=== PATIENT | male | born 1950 | race Caucasian/White ===

== ENCOUNTER 2016-07-29 12:50 | Outpatient (CLI) ==
--- NOTE | 2016-07-30 09:33 | DI ---
EXAM: Two radiographic images of the chest. Comparison: None available. Reason for study: Cough and congestion. FINDINGS: A left sided Port-A-Cath overlies the anterior chest with the tip in the superior vena ca va. No pneumothorax, pleural effusion, or focal consolidation. The cardiac silhouette is within no rmal limits for size. There is mild degenerative disease of the visualized thoracic spine with ante rior osteophytosis. IMPRESSION: No acute cardiopulmonary findings.
== END 2016-07-29 12:51 | disposition home or self-care (01) ==
LOC: RAD 12:50
PROVIDERS: ATTEND Internal Medicine
DX: R05 Cough (principal); R09.89 Other specified symptoms and signs involving the circulatory and respiratory systems

== ENCOUNTER 2018-12-23 12:20 | Inpatient (IN) ==
[2018-12-23] MEDS ORDERED: NITROSTAT SL PRN (13:42)
[2018-12-23] MEDS ORDERED: VISTARIL INJ IM PRN (13:42)
[2018-12-23] MEDS ORDERED: ATROPINE SULFATE PFS IVP PRN (13:42)
[2018-12-23] MEDS ORDERED: TYLENOL PO PRN (13:42)
[2018-12-23 14:15] VITALS: BMI 27.2
[2018-12-23] MEDS ORDERED: PROTONIX IV IVP STA (14:33)
--- NOTE | 2018-12-23 15:29 | DI ---
EXAM: Two views of the chest. History: Short of breath Comparison: Chest radiograph 07/29/2016 Findings: Heart size is upper limits of normal. No focal consolidation. No appreciable pleural flu id and no pneumothorax. Left central line seen in place. No acute osseous abnormalities. Stable fo cus of subsegmental atelectasis within the right mid lung. Impression: No acute cardiopulmonary process
--- NOTE | 2018-12-23 16:26 | CT ---
EXAM: CT ABDOMEN AND PELVIS HISTORY: Gastrointestinal bleed TECHNIQUE: CT abdomen and pelvis with intravenous contrast. Images were reconstructed using 5 mm se ction thickness. Reformations were prepared. 75 ml Visipaque 320 FINDINGS: No comparison. Mild fatty infiltration of the liver. No focal hepatic or splenic lesions. Gallbladder wall appears mildly thickened. No distinct gallstones are identified. No pericholecystic stranding. Pancreas a nd adrenal glands are within normal limits. The kidneys have normal enhancement with no hydronephros is. There is mild to moderate atherosclerotic disease. Stomach is within limits. Normal appendix. There is mild distal colon diverticulosis. Thickening o f the proximal duodenum is suggested. No bowel obstruction. Urinary bladder is within normal limits . There is moderate enlargement of the prostate. There is no ascites. The mildly prominent bilateral fatty inguinal canals. The bones reveal degenerative disc and facet d isease at the lumbosacral junction. Lung bases are clear. There is no pneumoperitoneum. IMPRESSION: 1. Mild distal colon diverticulosis. There is thickening of the proximal duodenal wall possibly rel ated to enteritis. Nonobstructive bowel gas pattern. 2. Fatty liver. 3. Atherosclerotic disease. 4. Prostate enlargement.
[2018-12-23] MEDS: GLUCOPHAGE PO SCH (17:32)
[2018-12-23] MEDS: CARAFATE PO SCH ×2 (17:32→21:19)
[2018-12-23] MEDS ORDERED: METFORMIN HCL 1000 MG PO SCH (21:00)
[2018-12-23] MEDS: PROTONIX IV IVP SCH (21:19)
[2018-12-23] MEDS: FLOMAX PO SCH (21:19)
[2018-12-24] MEDS ORDERED: ASPIRIN EC PO SCH (08:00)
[2018-12-24] MEDS ORDERED: NON-FORMULARY MEDICATION (Losartan/Hydrochlorothiazide [Losartan-Hctz 100-25 Mg Tab] 1 TAB PO SCH (09:00)
[2018-12-24] MEDS: LIPITOR PO SCH (09:25)
[2018-12-24] MEDS: CARAFATE PO SCH ×4 (09:25→21:23)
[2018-12-24] MEDS: HYZAAR 50-12.5 MG TAB PO SCH (09:25)
[2018-12-24] MEDS: INSULIN GLARGINE HUM REC ANLOG 55 UNIT SQ SCH (09:57)
[2018-12-24] MEDS: PROTONIX IV IVP SCH ×2 (10:13→21:23)
--- NOTE | 2018-12-24 10:21 | DI ---
EXAM: Single contrast upper GI History: Valdez's esophagus. Comparison: CT abdomen pelvis 12/23/2018 Technique: Patient was given oral gastrographin and multiple spot films of the esophagus, stomach an d duodenum were obtained in various projections. Findings: The course and caliber of the esophagus are within normal limits. No mucosal lesions or f illing defects identified. The gastroesophageal junction is patent. No hiatal hernia. No gastroeso phageal reflux was observed during the course of this examination. No gastric polyps or ulcerations identified. No gastric outlet obstruction. The course and caliber of the duodenum are within normal limits. No wall thickening of the duodenum. No extravasation of contrast material. Impression: Unremarkable upper GI examination
--- NOTE | 2018-12-24 14:05 | HP ---
DATE OF SERVICE: 12/23/18 REASON FOR HOSPITALIZATION/ HISTORY OF PRESENT ILLNESS: The patient has had dizziness and light headed. Dark color black stools times two days, now stopped for 24 hours. 15 days go had epigastric pain with vomiting times several hours with fatigue and being tired. PAST MEDICAL HISTORY: Cancer tonsils Diabetes Mellitus type 2 Estefany. Anemia GERD History of Valdez's Esophagus Hypertension Dyslipidemia Osteoarthritis Sleep apnea (CPAP) PAST SURGICAL HISTORY: Light shoulder rotator cuff Right finger amputation REVIEW OF SYSTEMS: CONSTITUTIONAL: No fever, Fatigue. HEENT: No sinus drainage, no sore throat. RESPIRATORY: No cough, no congestion. CARDIOVASCULAR: No atypical chest pain for coronary artery disease. No angina , CHF symptoms, palpitations or shortness of breath. GASTROINTESTINAL: No melena or abdominal pain. No GERD. GENITOURINARY: No hematuria, no prostatism, no polyuria. CULINARY DIRECTOR: No blackout, no dizziness, no headache, no double vision. MUSCULOSKELETAL: No osteoarthritis pain, no joint swelling. ENDOCRINE: No weight loss, no weight gain. SKIN: Not dry, no rash. PSYCHIATRIC: Anxious, no depression, no suicidal thoughts, no homicidal thoughts. SOCIAL HISTORY: Marital Status: . Alcohol Usage: Occasional. Tobacco Usage: Yes. FAMILY HISTORY: Father diabetes mellitus type 2, heart Mother living Diabetes Mellitus type 2 MEDICATIONS: Omeprazole 40mg PO daily Aspirin 81mg Po daily Metformin 1000mg twice a day Losartan 100/25mg PO daily Lipitor 10mg PO daily Toujeo 50mg PO daily ALLERGIES: Codeine PHYSICAL EXAMINATION: V/S: Pulse 92, blood pressure 122/80, oxygen saturation 96%, Height 6'1, BMI 27.9 and weight 211.6. GENERAL APPEARANCE: Oriented times three. HEENT: Normal. NECK: No JVP, no bruits. RESPIRATORY: Lungs are clear. CARDIOVASCULAR: S1, S2, no S3, no murmurs. No cyanosis, clubbing. No ascites. GI/ABDOMEN: No tenderness. Bowel sounds are active. EXTREMITIES: edema, pulses +1, equal. CULINARY DIRECTOR: Deep tendon reflexes, sensory, motor and gait all normal. RECTAL: Refused EGD/colonoscopy/PROSTATE: - (2.1) . ASSESSMENT: 1. Peptic ulcer disease 2. GI bleed 3. Postural hypotension 4. Sinus tachycardia 5. BPH type symptoms 6. Cancer of tonsil and throat- Dr. Mckinney/Dr. Rivera 7. Estefany. anemia 8. Diabetes Mellitus type 2 10/05 A1c (7.6) 9. GERD 10.History of Valdez's esophagus 11.Hypertension 12.Dyslipidemia 13.Osteoarthritis 14.Sleep apnea, CPAP 15.COPD PLAN: 1. Admit, special care 2. Routine telemetry orders 3. Discontinue ASA 4. Protonix 40mg PO now and 12 hourly 5. Carafate 1gram PO four times a day 6. CT scan of abdomen and pelvis with contrast today 7. Upper GI with Barium swallow AM 8. Stool for occult blood times three 9. Continue all home medications. TIME SPENT: More than 70 minutes. MTDD
[2018-12-24] MEDS: FLOMAX PO SCH (21:23)
[2018-12-25] MEDS: CARAFATE PO SCH ×4 (06:22→21:04)
[2018-12-25] MEDS: LIPITOR PO SCH (08:37)
[2018-12-25] MEDS: HYZAAR 50-12.5 MG TAB PO SCH (08:37)
[2018-12-25] MEDS: PROTONIX IV IVP SCH ×2 (08:37→21:05)
[2018-12-25] MEDS: INSULIN GLARGINE HUM REC ANLOG 55 UNIT SQ SCH (08:37)
[2018-12-25] MEDS: HUMULIN R SUBCUT PRN (17:09)
[2018-12-25] MEDS: GLUCOPHAGE PO SCH (17:32)
[2018-12-25] MEDS: FLOMAX PO SCH (21:04)
[2018-12-26 05:39] VITALS: BP 111/67; TEMP 98.3
[2018-12-26] MEDS: CARAFATE PO SCH (06:11)
[2018-12-26] MEDS: HUMULIN R SUBCUT PRN (06:12)
[2018-12-26] MEDS: HYZAAR 50-12.5 MG TAB PO SCH (08:44)
[2018-12-26] MEDS: LIPITOR PO SCH (08:44)
[2018-12-26] MEDS: GLUCOPHAGE PO SCH (08:44)
[2018-12-26] MEDS: INSULIN GLARGINE HUM REC ANLOG 55 UNIT SQ SCH (08:45)
[2018-12-26] MEDS: PROTONIX IV IVP SCH (08:45)
--- NOTE | 2018-12-27 10:01 | PN ---
DATE OF SERVICE: 12/25/18 SUBJECTIVE: 68 year old white male hospitalized with GI bleeding. The patient's hgb dropped from 14 or 15 with hct of 45 down to 9.5. This morning it is 9.8 with hct 28. The patient has according to him liquid type of stools but they are brown in color. No black tarry stools noted anymore. The patient had positive stool for occult. The patient definitely had GI bleed in my opinion and seems to me that patient is very likely had colonic bleed from diverticulosis. Peptic ulcer disease can not be ruled out. The patient is on Protonix and Carafate. He is feeling hungry and his appetite has improved. is in the room. REVIEW OF SYSTEMS: CONSTITUTIONAL: No night sweats. No fatigue, malaise, lethargy. No fever or chills. HEENT: Eyes: No visual changes. No eye pain. No eye discharge. ENT: No runny nose. No epistaxis. No sinus pain. No sore throat. No odynophagia. No congestion. RESPIRATORY: No cough, no congestion. No hemoptysis. No shortness of breath. CARDIOVASCULAR: No angina symptoms. No CHF symptoms. No atypical chest pain for CAD. No palpitations. No PND. No orthopnea. GASTROINTESTINAL: No abdominal pain. No nausea or vomiting. No diarrhea or constipation. No hematemesis. No hematochezia. Brownish stool. GENITOURINARY: No urgency. No frequency. No dysuria. No hematuria. No obstructive symptoms. No discharge. No pain. No significant abnormal bleeding. MUSCULOSKELETAL: No musculoskeletal pain; no joint swelling. NEUROLOGICAL: No headache. No neck pain. No syncope. No seizures. No dizziness. PSYCHIATRIC: Not anxious. No depression. No suicidal thoughts. No homicidal thoughts. SKIN: No rash. No lesions. No wounds. ENDOCRINE: No unexplained weight loss. No weight gain. HEMATOLOGIC/LYMPHATIC: No anemia. No purpura. No petechiae. No prolonged or excessive bleeding. No palpable lymph nodes. PHYSICAL EXAMINATION: VITAL SIGNS: Temperature 97.9, pulse 55, respiratory rate 18, blood pressure 150/67 and pulse 97%. HEENT: Head normocephalic, atraumatic. Eyes: Extraocular muscles are intact. Pupils are equal, round and reactive to light and accommodation. Ears: No lesions. Nose appeared normal. Throat: No exudate or erythema. NECK: Supple. No JVD, no carotid bruit. No lymphadenopathy or thyromegaly. LUNGS: Decreased breath sounds but clear to auscultation. Percussion note normal. Chest symmetrical. HEART: S1, S2, no S3. No murmurs. No cyanosis or clubbing. No ascites. Pulses: Dorsalis pedis and posterior tibial pulses +1 to +2 bilaterally. ABDOMEN: Soft. Nontender. Bowel sounds active. No CVA tenderness. No mass felt. EXTREMITIES: No edema. Full range of motion of all extremities, equal. NEUROLOGIC: No focal deficit. Cranial nerves II through XII are grossly intact. No headache, no double vision or headache. SKIN: Not dry. Intact. Turgor - normal. LYMPHATIC: No palpable lymph nodes/no lymphedema. MUSCULOSKELETAL: Normal joints with no swelling. Muscle tone is normal. LABS: Hgb 9.8, hct 28, WBC 8,300 normal differential, creatinine 1.1, BUN 23. ASSESSMENT: 1. GI bleed seems to be under control. The patient is off aspirin PLAN: 1. Continue to observe the patient 2. If the patient is up and about and appetite still remained good and the patient's doesn't have any abdominal discomfort with normal stool we will let the patient go home tomorrow. 3. The patient is going to need EGD and colonoscopy. The patient has history of Valdez's Esophagus and he has avoided EGD and colonoscopy for past several years. He is agreeable to get it done. CONDITION: Stable. TIME SPENT: More than 30 minutes. Plan and coordination of the patient's care discussed in the presence of nurse. MICH
--- NOTE | 2018-12-27 10:12 | ECHO2D ---
Date of Exam: 12/26/18 Ordering Physician: DR. MIKAYLA IVEY Room #: SCU2 Reason for Echo: CHEST PAIN/ DM2 M-Mode Normal Adult Results LV Dimensions Normal Adult Results AoV Opening excursions >1.6 >1.6 LVEDD-base- 3.5-5.8 4.2 Ao root dimensions 2.0-3.7 3.8 LVESD-base- 3.1-4.6 L. Atrium dimensions 1.9-3.8 4.5 Post. Wall thickness 0.8-1.1 1.4 IV septum (thickness) 0.7-1.2 1.7 Post. Wall excursion 0.72-1.3 NORMAL Septal motion NORMAL Systolic motion R. Ventricular cavity 1.5-2.0 NORMAL LVEF 60% 68% Paradoxical septal wall motion NORMAL 2-D : 2-D M Mode Echocardiogram was performed using apical four chamber and left parasternal long and short axis views. Mitral, tricuspid and aortic valves appear to be normal. Contractility of the left ventricle seems to be normal, so is the cavity size. ENLARGED LEFT ATRIAL CAVITY. Aortic root appears to be normal. There is no pericardial effusion. There is no thrombus noted in the left ventricular or left aortic cavity. No mitral valve prolapse noted. M-MODE: MV: NORMAL AV: NORMAL TV: NORMAL PV: CHAMBER SIZE: ENLARGED LEFT ATRIAL CAVITY WALL MOTION: NORMAL PERICARDIUM: NORMAL INTERPRETATION: 1. LEFT VENTRICULAR HYPERTROPHY-MODERATE WITH ENLARGED LEFT ATRIAL CAVITY 2. NORMAL LEFT VENTRICULAR CONTRACTILITY 3. NORMAL VALVES MTDD
--- NOTE | 2018-12-28 09:46 | PN ---
DATE OF SERVICE: 12/26/18 SUBJECTIVE: 68 year old white male hospitalized with GI bleed. The patient likely had GI bleed secondary to fall and peptic ulcer disease and or diverticulosis of colon. The patient is a lot better for 48 hours. He did not have any black stools. He probably had a normal BM this morning. His appetite is wonderful. He is up and about. HGB and HCT is stable today it was 9.8 and hct 27. REVIEW OF SYSTEMS: CONSTITUTIONAL: No night sweats. No fatigue, malaise, lethargy. No fever or chills. HEENT: Eyes: No visual changes. No eye pain. No eye discharge. ENT: No runny nose. No epistaxis. No sinus pain. No sore throat. No odynophagia. No congestion. RESPIRATORY: No cough, no congestion. No hemoptysis. No shortness of breath. CARDIOVASCULAR: No angina symptoms. No CHF symptoms. No atypical chest pain for CAD. No palpitations. No PND. No orthopnea. GASTROINTESTINAL: No abdominal pain. No nausea or vomiting. No diarrhea or constipation. No hematemesis. No hematochezia. GENITOURINARY: No urgency. No frequency. No dysuria. No hematuria. No obstructive symptoms. No discharge. No pain. No significant abnormal bleeding. MUSCULOSKELETAL: No musculoskeletal pain; no joint swelling. NEUROLOGICAL: No headache. No neck pain. No syncope. No seizures. No dizziness. PSYCHIATRIC: Not anxious. No depression. No suicidal thoughts. No homicidal thoughts. SKIN: No rash. No lesions. No wounds. ENDOCRINE: No unexplained weight loss. No weight gain. HEMATOLOGIC/LYMPHATIC: No anemia. No purpura. No petechiae. No prolonged or excessive bleeding. No palpable lymph nodes. PHYSICAL EXAMINATION: VITAL SIGNS: Temperature 98.3, pulse 60, respiratory rate 15, blood pressure 110/70 and pulse ox 97% on room air. HEENT: Head normocephalic, atraumatic. Eyes: Extraocular muscles are intact. Pupils are equal, round and reactive to light and accommodation. Ears: No lesions. Nose appeared normal. Throat: No exudate or erythema. NECK: Supple. No JVD, no carotid bruit. No lymphadenopathy or thyromegaly. LUNGS: Clear to auscultation. Percussion note normal. Chest symmetrical. HEART: S1, S2, no S3. No murmurs. No cyanosis or clubbing. No ascites. Pulses: Dorsalis pedis and posterior tibial pulses +1 to +2 bilaterally. ABDOMEN: Soft. Nontender. Bowel sounds active. No CVA tenderness. No mass felt. EXTREMITIES: No edema. Full range of motion of all extremities, equal. NEUROLOGIC: No focal deficit. Cranial nerves II through XII are grossly intact. No headache, no double vision or headache. SKIN: Not dry. Intact. Turgor - normal. LYMPHATIC: No palpable lymph nodes/no lymphedema. MUSCULOSKELETAL: Normal joints with no swelling. Muscle tone is normal. ASSESSMENT: 1. GI bleed resolved 2. Diabetes Mellitus 3. C of the tonsil treated with chemotherapy and radiation 4. Hypertension 5. Dyslipidemia 6. BPH PLAN: 1. Discharge the patient home 2. Protonix and Carafate 3. Iron supplements 4. The patient is to see me on Thursday morning at 11:30am. 5. Anymore abdominal discomfort or GI bleed with black stools go to the emergency room. TIME SPENT: More than 30 minutes. Plan and coordination of the patient's care discussed in the presence of nurse. MICH
--- NOTE | 2018-12-28 09:58 | DS ---
DATE OF SERVICE: 12/26/18 FINAL DIAGNOSIS: 1. GI bleeding, etiology could be peptic ulcer or colonic diverticulosis 2. Diabetes Mellitus 3. History of Tonsil cancer treated with radiation and chemotherapy 4. Hypertension 5. Dyslipidemia 6. BPH DISCHARGE INSTRUCTIONS: The patient will be discharged home with instruction to come back on Thursday which is two days from now at 11:30 for a followup. The patient is advised to call Dr. Tubbs to get EGD and colonoscopy scheduled. The patient had those scheduled but he never kept his appointment. It has been dragged on for past several years. The patient has history of Valdez's esophagus. MEDICATIONS AT DISCHARGE: Atorvastatin Toujeo Losartan with Hydrochlorothiazide Metformin Flomax Omeprazole NEW PRESCRIPTIONS: Protonix 40mg daily Carafate 1gram four times a day Ferrous sulfate 325 twice a day DIET INSTRUCTIONS: As tolerated ACTIVITY: As tolerated SMOKING: N/A DISEASE SPECIFIC EDUCATION: GI bleed NSAIDS Followup New medications HOSPITAL COURSE: 68 year old white male hospitalized with GI bleed. His hgb dropped from 14 to 9.[address] for three days. The patient did not have any discomfort during the stay in the hospital. The patient's CT scan of the abdomen and pelvis was unremarkable except for enteritis. Upper GI with barium swallow gastrographin was negative. The patient had couple of weeks prior to hospitalization epigastric pain which was quite severe to the point where he had problems sleeping at night and lasted over night but after that he never had any problems with it except that for past couple of days prior to his admission he had this GI bleed with abdominal discomfort with black tarry stools. The patient was light headed and had evidence of pseudohypotension. The patient is up and about. Appetite is normal, no abdominal pain. His hgb and hct is stable, 9.8 and hct 27. His bowel movements are regular normal. The patient has been instructed to go to the nearest emergency room incase he starts passing black tarry stools or has abdominal discomfort with lightheadedness. CONDITION: stable. TIME SPENT: More than 60 minutes. MTDD
--- NOTE | 2018-12-28 09:59 | PN ---
12/23/18: Level 5 12/24/18: Intermediate 12/25/18: Intermediate 12/26/18: D as in discharge MTDD
--- NOTE | 2018-12-28 10:44 | PN ---
DATE OF SERVICE: 12/24/18 SUBJECTIVE: 68 year old male hospitalized with GI bleed. The patient's HGB now had dropped from 14 that was a couple of months ago to 9.5 today with hct of 27. The patient 's feeling better with no abdominal pain but has abdominal discomfort and epigastric area. The patient's CT scan of the abdomen was practically negative except for possibility of colitis. Upper GI with gastrographin reported normal done today. REVIEW OF SYSTEMS: CONSTITUTIONAL: No night sweats. No fatigue, malaise, lethargy. No fever or chills. HEENT: Eyes: No visual changes. No eye pain. No eye discharge. ENT: No runny nose. No epistaxis. No sinus pain. No sore throat. No odynophagia. No congestion. RESPIRATORY: No cough, no congestion. No hemoptysis. No shortness of breath. CARDIOVASCULAR: No angina symptoms. No CHF symptoms. No atypical chest pain for CAD. No palpitations. No PND. No orthopnea. GASTROINTESTINAL: No abdominal pain. No nausea or vomiting. No diarrhea or constipation. No hematemesis. No hematochezia. The patient is feeling hungry, the is in the room. GENITOURINARY: No urgency. No frequency. No dysuria. No hematuria. No obstructive symptoms. No discharge. No pain. No significant abnormal bleeding. MUSCULOSKELETAL: No musculoskeletal pain; no joint swelling. NEUROLOGICAL: No headache. No neck pain. No syncope. No seizures. No dizziness. PSYCHIATRIC: Not anxious. No depression. No suicidal thoughts. No homicidal thoughts. SKIN: No rash. No lesions. No wounds. ENDOCRINE: No unexplained weight loss. No weight gain. HEMATOLOGIC/LYMPHATIC: No anemia. No purpura. No petechiae. No prolonged or excessive bleeding. No palpable lymph nodes. PHYSICAL EXAMINATION: VITAL SIGNS: Temperature 97.7, pulse 60, respiratory rate 18, blood pressure 118/70 and pulse ox 96%. HEENT: Head normocephalic, atraumatic. Eyes: Extraocular muscles are intact. Pupils are equal, round and reactive to light and accommodation. Ears: No lesions. Nose appeared normal. Throat: No exudate or erythema. NECK: Supple. No JVD, no carotid bruit. No lymphadenopathy or thyromegaly. LUNGS: Decreased breath sounds but clear to auscultation. Percussion note normal. Chest symmetrical. HEART: S1, S2, no S3. No murmurs. No cyanosis or clubbing. No ascites. Pulses: Dorsalis pedis and posterior tibial pulses +1 to +2 bilaterally. ABDOMEN: Soft. Nontender. Bowel sounds active. No CVA tenderness. No mass felt. EXTREMITIES: No edema. Full range of motion of all extremities, equal. NEUROLOGIC: No focal deficit. Cranial nerves II through XII are grossly intact. No headache, no double vision or headache. SKIN: Not dry. Intact. Turgor - normal. LYMPHATIC: No palpable lymph nodes/no lymphedema. MUSCULOSKELETAL: Normal joints with no swelling. Muscle tone is normal. LABS: Hgb 9.5, hct 27, WBC 6,700 normal differential, creatinine 1.2, BUN 26, potassium 3.7. ASSESSMENT: 1. GI bleed likely from diverticulosis of the colon, can not rule out peptic ulcer disease. The patient is not on any nonsteroidal antiinflammatory. The patient is diabetic. PLAN: 1. Type of screen two units 2. H&H this afternoon 3. Continue Protonix and Carafate CONDITION: Stable. TIME SPENT: More than 30 minutes. Plan and coordination of the patient's care discussed in the presence of nurse. MICH
== END 2018-12-26 12:12 | disposition home or self-care (01) | DRG 379 ==
LOC: SCU 12:20
PROVIDERS: ADMIT Internal Medicine; ATTEND Internal Medicine
DX: K92.2 Gastrointestinal hemorrhage, unspecified (principal); K57.90 Diverticulosis of intestine, part unspecified, without perforation or abscess without bleeding; K21.9 Gastro-esophageal reflux disease without esophagitis; E11.9 Type 2 diabetes mellitus without complications; E78.5 Hyperlipidemia, unspecified; I10 Essential (primary) hypertension; I95.1 Orthostatic hypotension; M19.90 Unspecified osteoarthritis, unspecified site; G47.33 Obstructive sleep apnea (adult) (pediatric); N40.0 Benign prostatic hyperplasia without lower urinary tract symptoms; J44.9 Chronic obstructive pulmonary disease, unspecified; R10.13 Epigastric pain; R53.83 Other fatigue; R00.0 Tachycardia, unspecified
CPT/HCPCS: 36415; 80053; 81001; 82272; 82550; 82962; 84484; 85014; 85018; 85025; 86850; 86900; 93005; 93010

== ENCOUNTER 2019-01-11 08:48 | Day surgery (SDC) ==
[2019-01-11 09:08] VITALS: TEMP 97.6
[2019-01-11] MEDS ORDERED: LIDOCAINE HCL 2% LUER-JET ONE (10:20)
[2019-01-11] MEDS ORDERED: VERSED ONE (10:20)
[2019-01-11] MEDS ORDERED: DIPRIVAN 20 ML VIAL IVP ONE (10:20)
[2019-01-11 11:51] VITALS: BP 135/56
--- NOTE | 2019-01-12 09:28 | OP ---
INDICATIONS FOR PROCEDURE: 68-year-old gentleman presents for endoscopy and colonoscopy. He was recently hospitalized for acute lower GI bleed. He is asymptomatic now. He has a remote history of Valdez's disease. He last had endoscopy 15 years ago he tells me. He also has not had a colonoscopy in 15 years. He presents for screening colonoscopy and surveillance endoscopy. MEDICATIONS: SEE ANESTHESIA NOTES. PROCEDURE: 1. ENDOSCOPY, ESOPHAGEAL BIOPSIES. 2. COLONOSCOPY, SNARE POLYPECTOMY. REPORT: The risks, benefits, alternatives and limitations were discussed in detail with the patient. Informed consent was obtained. After adequate sedation was achieved, the video endoscope was introduced in the posterior pharynx and esophagus under direct vision and I easily advanced down to the second portion of the duodenum. I then slowly withdrew. The duodenal mucosa appeared unremarkable as did the duodenal bulb. The antrum and body were relatively unremarkable. The scope was retroflexed to look at the cardia and fundus which was unremarkable. The scope was anteflexed and withdrawn back through the esophagus. The gastric folds extended up to 38 cm. There was gastric tight mucosa extending from here to 33 cm. There were a few islands of squamous mucosa scattered throughout this area. This was consistent with a 5 cm segment of Valdez's. Video imaging capture capabilities were not available during this procedure so no pictures were taken. I did obtain four quadrant biopsies and targeted biopsies from 38 cm, 36 cm, 34 cm and 33 cm. Four separate jars were sent to pathology. The patient tolerated the procedure well with stable vital signs and pulse oximetry throughout. The patient's bed was turned. A digital rectal exam revealed good tone, no mass. The colonoscope was introduced into the rectum, was advanced under direct visual guidance to the cecum. The cecum was identified by the appendiceal orifice and IC valve. Again, video capture feature was not available throughout this exam so no pictures were taken. Once in the cecum I then slowly withdrew the scope in a circumferential manner examining the mucosa quite carefully. I looked on the proximal and distal side of folds and flexures as best as possible. I was able to retroflex the scope in the right colon and left colon to increase visualization. In the ascending colon and hepatic flexure area there were several small mouth diverticula noted. There was several scattered diverticula small mouth in the sigmoid colon. In the proximal transverse colon there were two 6 mm sessile polyps that I removed by snare technique. These were retrieved. In the mid transverse colon there was a small 3 to 4 mm polyp and a 6 mm polyp, both sessile, both removed by snare technique. The larger was retrieved. In the descending area there was a 6 mm sessile polyp that I removed by snare and it was retrieved. No other abnormalities noted including on retroflex view of the anal canal. The prep was good. The withdrawal time was 11 minutes and 26 seconds. The patient tolerated the procedure well with stable vital signs and pulse oximetry throughout. IMPRESSION: 1. 5 cm segmented Valdez's. 2. Five (5) colonic polyps successfully removed. 3. Scattered diverticulosis throughout the colon. 4. 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 5. I suspect his acute lower GI bleed was due to a diverticular bleed. RECOMMENDATIONS: 1. High fiber diet. 2. Reflux precautions. 3. Await esophageal biopsy results. If there is no evidence of dysplasia or atypia, recommend surveillance endoscopy examination again in 3 years. 4. Await colon polyp pathology. If everything is benign, then I would suggest a surveillance colonoscopy examination again in 3 years, sooner if signs or symptoms would indicate otherwise. 5. Will see him back in the office as needed. CC: DR. UCHE EPPS
== END 2019-01-11 11:50 | disposition home or self-care (01) ==
LOC: SURG 08:48
PROVIDERS: ATTEND Internal Medicine Gastroenterology
DX: K92.1 Melena (principal); K22.70 Barrett's esophagus without dysplasia; Z12.11 Encounter for screening for malignant neoplasm of colon; K31.7 Polyp of stomach and duodenum; D12.4 Benign neoplasm of descending colon; D12.3 Benign neoplasm of transverse colon
CPT/HCPCS: 82962

== ENCOUNTER 2019-01-12 05:04 | Emergency (ER) ==
[2019-01-12 05:11] VITALS: TEMP 96.8
[2019-01-12 05:20] VITALS: BP 185/94; BMI 29.0
[2019-01-12] MEDS ORDERED: MORPHINE 2 MG/ML SYRINGE IVP STA (05:29)
[2019-01-12] MEDS ORDERED: ZOFRAN 4 MG/2 ML IVP STA (05:30)
[2019-01-12] MEDS ORDERED: DILAUDID 0.5 MG/0.5 ML SYRINGE IVP STA ×2 (05:48→06:53)
[2019-01-12] MEDS ORDERED: SODIUM CHLORIDE 1,000 ML IV STA (06:08)
--- NOTE | 2019-01-12 06:32 | ED.PDOC ---
General ED Provider: Dr. RODOLFO STRONG-ER Chief Complaint: Abdominal Pain Stated Complaint: had colonoscopy with polypectomy yesterday--now with upper abd pain and vomiting Time Seen by Physician: 05:05 Mode of Arrival: Wheelchair Information Source: Patient, Family Exam Limitations: No limitations Primary Care Provider: MIKAYLA CANTRELL Nursing and Triage Documentation Reviewed and Agree: Yes Does patient meet sepsis criteria?: No System Inflammatory Response Syndrome: Not Applicable Sepsis Protocol: For patient's 13 years and over: Temp is 96.8 and below OR 101 and greater Pulse >90 BPM Resp >20/minute Acutely Altered Mental Status Are patient's symptoms suggestive of a new infection, such as: -Pneumonia -Skin, Soft Tissue -Endocarditis -UTI -Bone, Joint Infection -Implantable Device -Acute Abdominal Infection -Wound Infection -Meningitis -Blood Stream Catheter Infection -Unknown GI Complaint Exam - Abdominal Pain Complaint/Exam Onset: Gradual Duration: 2-3 hours Symptoms Are: Still present Timing: Constant Initial Severity: Mild Current Severity: Moderate Location of Pain: Diffuse Character: Reports: Dull, Aching Associated Signs and Symptoms: Reports: Nausea, Vomiting Related History: Reports: Similar episode Differential Diagnoses: Bowel Obstruction, Constipation, Pancreatitis Quality Indicator For Non-Traumatic Chest Pain/Syncope: EKG Performed Review of Systems - Review Of Systems Constitutional: Reports: No symptoms Eyes: Reports: No symptoms Ears, Nose, Mouth, Throat: Reports: No symptoms Respiratory: Reports: No symptoms Cardiac: Reports: No symptoms GI: Reports: Abdominal pain, Nausea, Vomiting : Reports: No symptoms Musculoskeletal: Reports: No symptoms Skin: Reports: No symptoms Neurological: Reports: No symptoms Endocrine: Reports: No symptoms Hematologic/Lymphatic: Reports: No symptoms All Other Systems: Reviewed and Negative Past Medical History - Past Medical History Previously Healthy: Yes Endocrine: Reports: Unknown Cardiovascular: Reports: Unknown Respiratory: Reports: Unknown Hematological: Reports: Unknown Gastrointestinal: Reports: Unknown Genitourinary: Reports: Unknown Neuro/Psych: Reports: Unknown Musculoskeletal: Reports: Unknown Cancer: Reports: Unknown - Surgical History General Surgical History: Reports: Unknown - Family History Family History: Reports: Unknown - Social History Smoking Status: Former smoker, Vaping Hx Substance Use: No Alcohol Screening: Occasionally - Immunizations Tetanus Shot up to Date: Yes Physical Exam - Physical Exam Appearance: Well-appearing, No pain distress, Well-nourished Pain Distress: Moderate Eyes: JOHANNA, EOMI, Conjunctiva clear ENT: Ears normal, Nose normal, Oropharynx normal Neck: Supple Respiratory: Airway patent, Breath sounds clear, Breath sounds equal, Respirations nonlabored Cardiovascular: RRR, Pulses normal, No rub, No murmur GI/: Soft, Nontender, No masses, Bowel sounds normal, No Organomegaly Musculoskeletal: Normal strength, ROM intact, No edema, No calf tenderness Skin: Warm, Dry, Normal color Neurological: Sensation intact, Motor intact, Reflexes intact, Cranial nerves intact, Alert, Oriented Psychiatric: Affect appropriate, Mood appropriate Interpretation - Radiology Interpretation Radiology Interpretation By: Radiologist Radiology Results: Positive Exam Interpreted: CT Scan - EKG Interpretation Time of EKG #1: 06:33 Rate: Jack Rhythm: Sinus Ectopy: None [place]: NL ST Segment: Normal Interpretation: sinus jack Physician Notification - Case Discussed Physician Notified: dr cantrell---suggested transfer to [facility] for surgery consult Time of Notification: 07:02 Critical Care Note - Critical Care Note Total Time (mins): 0 Course - Course Hematology/Chemistry: 01/12/19 05:40 01/12/19 05:40 Orders, Labs, Meds: Lab Review 01/12/19 01/12/19 01/12/19 05:40 05:40 06:40 WBC 12.87 H RBC 3.50 L Hgb 11.6 L Hct 34.9 L MCV 99.7 H MCH 33.1 H MCHC 33.2 RDW Coeff of Jeimy 13.5 Plt Count 332 Immature Gran % (Auto) 0.5 Neut % (Auto) 84.4 Lymph % (Auto) 7.3 L [place] % (Auto) 7.3 Eos % (Auto) 0.2 Baso % (Auto) 0.3 Immature Gran # (Auto) 0.1 Neut # (Auto) 10.9 H Lymph # (Auto) 0.9 [place] # (Auto) 0.9 Eos # (Auto) 0.0 Baso # (Auto) 0.0 ESR 37 H Sodium 141.2 Potassium 3.90 Chloride 98.6 Carbon Dioxide 26.2 Anion Gap 20.30 BUN 16.8 Creatinine 1.65 H Estimated GFR (MDRD) 42.00 BUN/Creatinine Ratio 10.18 Glucose 269.7 H Calcium 9.91 Total Bilirubin 1.04 AST 38.6 ALT 52.0 H Alkaline Phosphatase 69.5 Total Creatine Kinase 37.0 L Troponin I < 0.012 Total Protein 7.61 Albumin 4.68 Globulin 2.93 Albumin/Globulin Ratio 1.59 Amylase 89.9 Lipase 265.4 Urine Color Yellow Urine Clarity Clear Urine pH 7.0 Ur Specific [place] 1.015 Urine Protein Trace Urine Glucose (UA) 2+ Urine Ketones Trace Urine Blood Negative Urine Nitrite Negative Urine Bilirubin Negative Urine Urobilinogen 0.2 Ur Leukocyte Esterase Negative Urine Microscopic WBC 0-2 Ur Squamous Epith Cells Not present Orders Category Date Time Status EKG-(ED ONLY) Stat CARDIO 01/12/19 05:29 Completed [employer] [place] [ED FIELD REPRESENTATIVES DIRECTOR APPLIED] .ONCE EMERGENCY 01/12/19 05:29 Active ED IV/MEDIPORT/POWERPORT .ONCE EMERGENCY 01/12/19 05:29 Active AMYLASE Stat LAB 01/12/19 05:40 Completed CBC W/ AUTO DIFF Stat LAB 01/12/19 05:40 Completed COMPREHENSIVE METABOLIC PANEL Stat LAB 01/12/19 05:40 Completed CREATINE KINASE Stat LAB 01/12/19 05:40 Completed ESR Stat LAB 01/12/19 05:40 Completed LIPASE Stat LAB 01/12/19 05:40 Completed TROPONIN I Stat LAB 01/12/19 05:40 Completed URINALYSIS C & S IF INDICATED Stat LAB 01/12/19 06:40 Completed 0.9 % Sodium Chloride [Saline Flush] MEDS 01/12/19 05:29 Ordered 1 syr IVF PRN PRN Hydromorphone HCl [Dilaudid 0.5 mg/0.5 ml Syringe] MEDS 01/12/19 05:48 Discontinued 0.5 mg IVP ONCE STA Hydromorphone HCl [Dilaudid 0.5 mg/0.5 ml Syringe] MEDS 01/12/19 06:53 Discontinued 0.5 mg IVP ONCE STA Morphine Sulfate [Morphine 2 mg/ml Syringe] MEDS 01/12/19 05:29 Discontinued 2 mg IVP ONCE STA Ondansetron HCl/Pf [Zofran 4 mg/2 ml] MEDS 01/12/19 05:30 Discontinued 4 mg IVP ONCE STA Sodium Chloride 0.9% [Sodium Chloride] 1,000 ml MEDS 01/12/19 06:08 Active IV 100 mls/hr CT ABDOMEN/PELVIS WO CONTRAST Stat RADS 01/12/19 06:08 Completed Medications Generic Name Dose Route Start Last Admin Trade Name Jeromy PRN Reason Stop Dose Admin Sodium Chloride 1,000 mls @ 100 mls/hr 01/12/19 06:08 01/12/19 05:30 Sodium Chloride IV 01/12/19 16:07 100 mls/hr .Q10H STA Administration Sodium Chloride 1 syr 01/12/19 05:29 01/12/19 05:37 Saline Flush IVF 1 syr PRN PRN Administration To flush IV Discontinued Medications Generic Name Dose Route Start Last Admin Trade Name Jeromy PRN Reason Stop Dose Admin Hydromorphone HCl 0.5 mg 01/12/19 05:48 01/12/19 05:51 Dilaudid 0.5 Mg/0.5 Ml Syringe IVP 01/12/19 05:49 0.5 mg ONCE STA Administration Hydromorphone HCl 0.5 mg 01/12/19 06:53 Dilaudid 0.5 Mg/0.5 Ml Syringe IVP 01/12/19 06:54 ONCE STA Morphine Sulfate 2 mg 01/12/19 05:29 01/12/19 05:35 Morphine 2 Mg/Ml Syringe IVP 01/12/19 05:30 2 mg ONCE STA Administration Ondansetron HCl 4 mg 01/12/19 05:30 01/12/19 05:34 Zofran 4 Mg/2 Ml IVP 01/12/19 05:31 4 mg ONCE STA Administration Vital Signs: Temp Pulse Resp BP Pulse Ox 01/12/19 05:04 96.8 F L 45 L 20 185/94 H 98 Departure - Departure Time of Disposition: 07:01 Disposition: TSF SHORT-TRM HOSP Discharge Problem: Abdominal pain Instructions: Acute Abdominal Pain (ED) Condition: Good Pt referred to PMD for follow-up: Yes IPMP verified?: No Allergies/Adverse Reactions: Allergies No Known Drug Allergies Allergy (Verified 01/12/19 05:11) Home Medications: Ambulatory Orders Atorvastatin Calcium 10 mg PO DAILY 01/23/16 Insulin Glargine,Hum.rec.anlog [Kelsi Guthrie] 55 unit SQ DAILY 01/23/16 Losartan/Hydrochlorothiazide [Losartan-Hctz 100-25 mg Tab] 1 tab PO DAILY Metformin HCl [Metformin ER Osmotic] 1,000 mg PO BID 01/23/16 Tamsulosin HCl [Flomax] 0.4 mg PO BEDTIME 12/23/18 Acetaminophen [Tylenol] 650 mg PO Q4H PRN tablet 12/26/18 Ferrous Sulfate [Iron] 325 mg PO BID #60 tablet 12/26/18 Pantoprazole Sodium [Protonix] 40 mg PO DAILY #30 tablet. 12/26/18 Sucralfate [Carafate] 1 gm PO ACHS #50 tablet 12/26/18 Transfer Form Completed: Yes Disposition Discussed With: Patient, Family
--- NOTE | 2019-01-12 06:54 | CT ---
EXAM: CT abdomen pelvis without intravenous contrast 01/12/2019. Sagittal and coronal reformatted i mages obtained HISTORY: Abdominal pain. Recent colonoscopy. COMPARISON: 12/23/2018 FINDINGS: The liver shows no acute abnormality. Gallbladder appears distended. Gallbladder has ind istinct margins which could represent pericholecystic edema. Cholecystitis is not excluded. Ultraso und would be of benefit in further evaluation. The adrenal glands and kidneys show no acute abnormality. No urinary obstruction. The spleen and pancreas show no acute abnormality. There is no bowel obstruction. Normal appendix. Unremarkable urinary bladder. No free air or free fluid. Colonic diverticulosis. No evidence of acute diverticulitis. No acute osseous abnormality. IMPRESSION: 1. Distended gallbladder with suggestion of subtle pericholecystic edema. Cholecystitis is not excl uded. Ultrasound would be of benefit in further evaluation. 2. No urinary or bowel obstruction and normal appendix 3. Diverticulosis without diverticulitis. 4. Prostatic enlargement as previously described. 5. Technically limited examination due to the lack of intravenous contrast.
== END 2019-01-12 07:38 | disposition short-term general hospital (02) ==
LOC: ED 05:04
DX: R10.10 Upper abdominal pain, unspecified (principal); R11.2 Nausea with vomiting, unspecified; Z98.890 Other specified postprocedural states; Z72.0 Tobacco use; Z79.899 Other long term (current) drug therapy
CPT/HCPCS: 36415; 80053; 81001; 82150; 82550; 83690; 84484; 85025; 85651; 93005; 93010; 96361; 96374; 96375; 96376; 99285

== ENCOUNTER 2019-01-12 07:41 | Outpatient (CLI) | payer OTHER ==
[2019-01-12 05:20] VITALS: BMI 29.0
== END 2019-01-12 08:03 | disposition short-term general hospital (02) ==
LOC: AMBL 07:41
PROVIDERS: ATTEND Family Medicine
DX: R10.9 Unspecified abdominal pain (principal); R11.2 Nausea with vomiting, unspecified